=== PATIENT | male | born 1955 | race Hispanic/Latino ===

== ENCOUNTER 2021-12-07 16:00 | Observation (INO) | payer SELFPAY ==
[~2021-12-07] VITALS: Ht 165.1 cm; Wt 83.9 kg
[2021-12-07 16:23] LABS: BASOPHILS % 0.4 % (0.0-1.0); EOSINOPHILS # (AUTO) 0.1 (0.0-0.4); EOSINOPHILS % 1.9 % (0.0-6.0); HEMATOCRIT 46.4 % (38.2-49.6); HEMOGLOBIN 15.5 g/dL (14.0-18.0); LYMPHOCYTES # (AUTO) 1.5 (1.0-3.2); LYMPHOCYTES % 22.2 % (18.0-39.1); MEAN CORPUSCULAR HEMOGLOBIN 28.2 pg (28-32); MEAN CORPUSCULAR HGB CONC 33.4 g/dL (31-35); MEAN CORPUSCULAR VOLUME 84.5 fL (81-99); MONOCYTES # (AUTO) 0.5 (0.2-0.8); MONOCYTES % 7.6 % (4.4-11.3); NEUTROPHILS # (AUTO) 4.6 (2.1-6.9); NEUTROPHILS % 67.8 % (38.7-80.0); PLATELET COUNT 245 x10e3/uL (140-360); RED BLOOD COUNT 5.49 x10e6/uL (4.3-5.7); RED CELL DISTRIBUTION WIDTH 13.1 % (11.7-14.4)
[2021-12-07 16:42] LABS: ALBUMIN/GLOBULIN RATIO 1.1 (0.8-2.0); ANION GAP 13.6 mmol/L (8-16); CREATININE, SERUM 0.98 mg/dL (0.72-1.25); POTASSIUM 3.6 mmol/L (3.5-5.1)
[2021-12-07] MEDS ORDERED: ASPIRIN 81 MG CHEW TAB PO STA (16:58)
[2021-12-07] MEDS ORDERED: SODIUM CHLORIDE FLUSH 10 ML SYR INJ PRN (17:00)
[2021-12-07 17:02] LABS: FREE T4 (FREE THYROXINE) 1.09 ng/dL (0.8-1.8); THYROID STIMULATING HORMONE 1.724 uIU/mL (0.350-4.940)
[2021-12-07] MEDS ORDERED: ONDANSETRON HCL INJ 2MG/ML 2ML 2 MG/ML VIAL IV PRN (18:45)
[2021-12-07] MEDS: METOPROLOL TARTRATE 25 MG TAB PO SCH (18:45)
[2021-12-07] MEDS ORDERED: ACETAMINOPHEN 325 MG TAB PO PRN (18:45)
[2021-12-07 20:00] VITALS: BP 132/86
[2021-12-07 21:00] VITALS: BP 132/86
[2021-12-07] MEDS: ENOXAPARIN INJ 80 MG/0.8 ML SYR SC SCH (22:33)
[2021-12-07] MEDS ORDERED: METOPROLOL TA37.5 MG PO (22:59)
[2021-12-07] MEDS ORDERED: DIOVAN160 MG PO (22:59)
[2021-12-07] MEDS ORDERED: HYDROCHLOROTHIA25 MG PO (22:59)
[2021-12-07] MEDS ORDERED: LIPITOR20 MG PO (22:59)
[2021-12-07] MEDS ORDERED: ASPIRIN81 MG PO (22:59)
[2021-12-07] MEDS ORDERED: BENZONATATE 100 MG CAP PO PRN (23:15)
[2021-12-08 01:44] LABS: CREATINE KINASE MB 2.3 ng/mL (0-5.0)
[2021-12-08 05:31] VITALS: BP 101/67
[2021-12-08 05:52] LABS: BASOPHILS % 0.7 % (0.0-1.0); EOSINOPHILS # (AUTO) 0.2 (0.0-0.4); EOSINOPHILS % 2.8 % (0.0-6.0); HEMATOCRIT 45.8 % (38.2-49.6); HEMOGLOBIN 15.2 g/dL (14.0-18.0); LYMPHOCYTES # (AUTO) 1.4 (1.0-3.2); LYMPHOCYTES % 23.6 % (18.0-39.1); MEAN CORPUSCULAR HEMOGLOBIN 28.1 pg (28-32); MEAN CORPUSCULAR HGB CONC 33.2 g/dL (31-35); MEAN CORPUSCULAR VOLUME 84.7 fL (81-99); MONOCYTES # (AUTO) 0.5 (0.2-0.8); MONOCYTES % 8.4 % (4.4-11.3); NEUTROPHILS # (AUTO) 3.9 (2.1-6.9); NEUTROPHILS % 64.2 % (38.7-80.0); PLATELET COUNT 233 x10e3/uL (140-360); RED BLOOD COUNT 5.41 x10e6/uL (4.3-5.7); RED CELL DISTRIBUTION WIDTH 13.2 % (11.7-14.4)
[2021-12-08 06:36] LABS: ALBUMIN 3.5 g/dL (3.5-5.0); ALBUMIN/GLOBULIN RATIO 1.1 (0.8-2.0); ANION GAP 9.6 mmol/L (8-16); CALCIUM 8.6 mg/dL (8.4-10.2); CREATININE, SERUM 0.99 mg/dL (0.72-1.25); POTASSIUM 3.6 mmol/L (3.5-5.1)
[2021-12-08 08:23] VITALS: BP 138/84
[2021-12-08 08:24] VITALS: BP 138/84
[2021-12-08] MEDS: ENOXAPARIN INJ 80 MG/0.8 ML SYR SC SCH (08:41)
[2021-12-08] MEDS: METOPROLOL TARTRATE 25 MG TAB PO SCH (08:41)
[2021-12-08 09:53] LABS: CREATINE KINASE MB 2.1 ng/mL (0-5.0)
[2021-12-08 11:21] VITALS: BP 137/82
[2021-12-08] MEDS ORDERED: ONDANSETRON HCL 4 MG ORAL DISINTEGRATING TAB PO PRN (12:15)
[2021-12-08] MEDS ORDERED: AMIODARONE HCL 200 MG TAB PO SCH (13:30)
[2021-12-08 15:18] VITALS: BP 135/86
[2021-12-08] MEDS ORDERED: WARFARIN SOD 5 MG TAB PO SCH (17:00)
[2021-12-08] MEDS ORDERED: VALSARTAN 160 MG TAB PO SCH (17:00)
[2021-12-08] MEDS ORDERED: ATORVASTATIN 20 MG TAB PO SCH (21:00)
== END 2021-12-08 15:55 | disposition home or self-care (01) ==
LOC: ER 16:13 → ERHOLD 16:58 → MED/SURG3 20:13
PROVIDERS: ADMIT Internal Medicine; ATTEND Internal Medicine
DX: I48.0 Paroxysmal atrial fibrillation (principal); I10 Essential (primary) hypertension; E78.5 Hyperlipidemia, unspecified; Z86.73 Personal history of transient ischemic attack (TIA), and cerebral infarction without residual deficits; J02.9 Acute pharyngitis, unspecified; E66.9 Obesity, unspecified; Z68.30 Body mass index [BMI] 30.0-30.9, adult
CPT/HCPCS: 36415 ×2; 71045; 80053 ×2; 82550; 82553; 84439; 84443; 84484 ×2; 85025 ×2; 93005 ×2; 93306; 94799; 99284; G0378 ×2; J1650 ×2; U0002